=== PATIENT | male | born 1975 | race African-American/Black ===

== ENCOUNTER 2021-12-03 23:05 | Emergency (ER) | payer BC, SELFPAY ==
--- NOTE | ~2021-12-03 | CT_ITS ---
EXAMINATION: CT soft tissue neck w con DATE: 12/04/2021 00:14 INDICATION: Right neck focal swelling. Sore throat. TECHNIQUE: Computed tomography (CT) of the neck was performed with 75 mL Omnipaque-350 intravenous co ntrast. Automated exposure control and iterative reconstruction technique were employed. The dose-abbie gth product was 639.52 mGy-cm. COMPARISON: None FINDINGS: The thyroid is enlarged with a 4.2 cm nodule in the superior mediastinum. The adenoids, pal atine tonsils, and lingual tonsils are enlarged. There is a 2.0 x 1.6 cm high left internal jugular c minerva lymph node. There is moderate cervical spondylosis. There is minimal mucosal thickening in the p aranasal sinuses. The mastoid air cells are normal. There is a 7 mm fragment of ossification abutting the anterior mandible at its lingual surface. IMPRESSION: 1. Enlarged adenoids, palatine tonsils, lingual tonsils. No abscess. 2. Mildly enlarged left high internal jugular chain lymph node, likely reactive. 3. 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 4. 7 mm fragment of ossification abutting the anterior mandible and its lingual surface, which may be a sialolith or mandibular torus. Reviewed, dictated and finalized at location A. IMPRESSION: 1. Enlarged adenoids, palatine tonsils, lingual tonsils. No abscess. 2. Mildly enlarged left high internal jugular chain lymph node, likely reactive . 3. 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 4. 7 mm fragment of ossification abutting the anterior mandible and its lingual surface, which may be a sialolith or mandibular torus.
[2021-12-03 23:14] VITALS: BP 124/76; PULSE 102; RESP 18; TEMP 36.8; O2SAT 98
--- NOTE | 2021-12-03 23:31 | ED.URI ---
HPI - URI/Sore Throat General Chief Complaint: Nausea/Vomiting/Diarrhea Stated Complaint: Dairrhea Time Seen by Provider: 12/03/21 23:19 Source: patient History of Present Illness HPI Narrative: Patient presents with a sore throat. Reports he has had sore throat for the past couple days his throat is achy, constant, worse with swallowing. Reports intermittent cough denies fevers or shortness of breath. Denies any known sick contacts. Reports since he was here he wanted to mention that he has had diarrhea chronically for the past month denies any nausea or vomiting denies any blood bile or melena. Related Data Home Medications Medication Instructions Recorded Confirmed No Home Medications 12/03/21 12/03/21 Allergies Allergy/AdvReac Type Severity Reaction Status Date / Time Penicillins Allergy Hives Verified 12/03/21 23:48 Review of Systems Review of Systems: CONSTITUTIONAL: Denies fever, chills, or sweats. EYES: Denies visual changes, redness, or discharge. ENT: Denies rhinorrhea, congestion or otalgia. CARDIOVASCULAR: Denies chest pain, palpitations, or edema. RESPIRATORY: Denies cough or dyspnea. GASTROINTESTINAL: Denies abdominal pain, nausea, vomiting GENITOURINARY: Denies dysuria or hematuria. SKIN: Denies rash or itching. MUSCULOSKELETAL: Denies back pain, joint pain, or myalgia. NEUROLOGIC: Denies headache, numbness, dizziness, or weakness. PSYCHIATRIC: Denies anxiety or depression. All systems reviewed & are unremarkable except as noted in HPI and below PMFSH Past Medical History Medical History (Updated 12/04/21 @ 01:55 by Kang Gillis MD) Patient denies significant medical history Exam Narrative: GENERAL: Well-appearing, well-nourished, and in no acute distress. HEAD: Normocephalic, atraumatic. EYES: PERRLA and EOMI. ENT: Nares clear, no rhinorrhea or epistaxis. Mucous membranes moist. NECK: Supple. Edema and tenderness noted to the inferior aspect of the anterior cervical chain and represent lymphadenopathy CHEST: Clear to auscultation. No respiratory distress. No wheezes rales or rhonchi HEART: Regular rate and rhythm. No murmur heard. Normal peripheral pulses. ABDOMEN: Soft, nontender, nondistended, normal active bowel sounds. EXTREMITIES: Normal range of motion. No edema. SKIN: Warm, dry, no rash. NEURO: No focal deficits. Alert and oriented x3. PSYCH: Normal mood and affect. Course Reevaluation(s) Reevaluation #1: Patient resting comfortably results plan reviewed with patient. Patient is comfortable with outpatient plan. Date: 12/04/21 Time: 01:49 Vital Signs Vital signs: Vital Signs Temperature 36.8 C 12/03/21 23:14 Pulse Rate 102 H 12/03/21 23:14 Respiratory Rate 18 12/03/21 23:14 Blood Pressure 124/76 12/03/21 23:14 Pulse Oximetry 98 12/03/21 23:14 Temperature 36.8 C 12/03/21 23:14 Pulse Rate 83 12/04/21 01:15 Respiratory Rate 14 12/04/21 01:15 Blood Pressure 127/84 12/04/21 01:15 Pulse Oximetry 97 12/04/21 01:15 MDM - URI/Sore Throat MDM Narrative Medical decision making narrative: Patient presents with sore throat for the past couple days. Was concerning for mass on the right neck labs and imaging obtained. Labs were clinically unremarkable. Imaging showed enlarged thyroid with a thyroid cyst with some displacement of the trachea and esophagus. Patient declined any shortness of breath there is no wheezing or stridor on exam. 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 Patient would benefit from further evaluation by ENT regarding his thyroid. Given patient's reassuring exam this can be done as an outpatient. Patient is offered evaluation by a local ENT already and he is just passing through him and prefers to establish his care in [place] that is where he is based out of. Patient reports he is also planning to move to [place] and February and. I encouraged him to see ENT prior to February for further evaluation of thi
[2021-12-03 23:44] LABS: Basophils Percent Auto 0.5 % (0.2-1.2); Eosinophils Absolute Auto 0.2 K/mm3 (0-0.3); Eosinophils Percent Auto 2.8 % (0-4.4); Hematocrit 42.6 % (42.0-52.0); Hemoglobin 13.9 g/dL (14.0-18.0); Immature Granulocyte Absolute 0.01 K/mm3 (0.00-0.031); Immature Granulocyte Percent A 0.1 % (0-0.5); Lymphocytes Absolute Auto 3.47 K/mm3 (0.9-3.2); Lymphocytes Percent Auto 45.5 % (18.3-44.2); Mean Corpuscular HGB Conc 32.6 g/dl (32-36); Mean Corpuscular Hemoglobin 30.1 pg (26-34); Mean Corpuscular Volume 92.2 fl (80-100); Mean Platelet Volume 9.6 fl (7.4-10.4); Monocytes Absolute Auto 0.7 K/mm3 (0.1-0.6); Monocytes Percent Auto 9.6 % (2.6-8.5); Neutrophils Absolute Auto 3.2 K/mm3 (1.3-6.7); Neutrophils Percent Auto 41.5 % (45.5-73.1); Platelet Count Result 220 k/mm3 (150-375); Red Blood Count 4.62 M/mm3 (4.6-6.20); Red Cell Distribution Width 13.7 % (11.5-14.5); White Blood Count 7.6 K/mm3 (4.5-10.0)
[2021-12-03] MEDS: KETOROLAC 15 MG/ML VIAL (*BKC) IV PUSH (23:50)
[2021-12-03 23:53] LABS: Alanine Aminotransferase 30 U/L (4-50); Albumin Level 4.5 g/dL (3.5-5.1); Alkaline Phosphatase 48 U/L (38-126); Anion Gap 7 mmol/L (8-16); Aspartate Amino Transferase 34 U/L (17-59); Bilirubin,Total 0.4 mg/dL (0.2-1.3); Blood Urea Nitrogen 11 mg/dL (9-20); Calcium 8.9 mg/dL (8.4-10.2); Carbon Dioxide 24 mmol/L (22-30); Chloride 108 mmol/L (98-107); Estimated CRCL calculation 103 ml/min; Estimated Glomerular Filt Rate > 60; Glucose 107 mg/dL (65-110); Sodium 139 mmol/L (137-145)
[2021-12-04 01:15] VITALS: BP 127/84; PULSE 83; RESP 14; O2SAT 97
== END 2021-12-04 02:13 | disposition home or self-care (01) ==
PROVIDERS: Emergency Provider Emergency Medicine
DX: J02.9 Acute pharyngitis, unspecified (principal); E04.1 Nontoxic single thyroid nodule
CPT/HCPCS: 36415; 70491; 80053; 85025; 87081; 87880; 96374; 99284; J1885; Q9967